=== PATIENT | male | born 1960 | race Caucasian/White ===

== ENCOUNTER 2018-05-25 14:31 | Inpatient (IN) | payer MEDICARE, MEDICAID ==
[~2018-05-25] VITALS: Ht 170.2 cm; Wt 97.4 kg
[2018-05-25 14:53] LABS: GLUCOSE,POINT OF CARE 89 MG/DL (70-110)
[2018-05-25] MEDS ORDERED: DIGO-44 PO (15:05)
[2018-05-25] MEDS ORDERED: QUET300T2 PO (15:05)
[2018-05-25] MEDS ORDERED: FAMO20 PO (15:05)
[2018-05-25] MEDS ORDERED: HYDR2 PO (15:05)
[2018-05-25] MEDS ORDERED: PRED10 PO (15:05)
[2018-05-25] MEDS ORDERED: NACL1 PO (15:05)
[2018-05-25] MEDS ORDERED: OXCA300T29 PO (15:05)
[2018-05-25] MEDS ORDERED: TRAZ-220 PO (15:05)
[2018-05-25] MEDS ORDERED: LORA0.5T2 PO (15:05)
[2018-05-25] MEDS ORDERED: CHLO100T24 PO (15:05)
[2018-05-25] MEDS ORDERED: ROFL500T PO (15:05)
[2018-05-25] MEDS ORDERED: ASCO500 PO (15:05)
[2018-05-25] MEDS ORDERED: MONT10TA21 PO (15:05)
[2018-05-25] MEDS ORDERED: BUME1TAB17 PO (15:05)
[2018-05-25] MEDS ORDERED: FERSL PO (15:05)
[2018-05-25] MEDS ORDERED: QUET25TA PO (15:05)
[2018-05-25] MEDS ORDERED: ATEN50TA PO (15:05)
[2018-05-25] MEDS ORDERED: NICO-802 TD (15:05)
[2018-05-25] MEDS ORDERED: CLON-570 PO (15:05)
[2018-05-25] MEDS ORDERED: DILT30 PO (15:05)
[2018-05-25] MEDS ORDERED: FENT-76 TD (15:05)
[2018-05-25] MEDS ORDERED: LEVO50 PO (15:05)
[2018-05-25] MEDS ORDERED: KDUR20 PO (15:05)
[2018-05-25] MEDS ORDERED: ONDA4 PO (15:05)
[2018-05-25] MEDS ORDERED: MIRT15 PO (15:05)
[2018-05-25] MEDS ORDERED: BUSP15 PO (15:05)
[2018-05-25] MEDS ORDERED: PRAZ1 PO (15:05)
[2018-05-25] MEDS ORDERED: MELA5TAB3 PO (15:05)
[2018-05-25 15:10] LABS: BASOPHILS % (AUTO) 0.8 % (0.0-2.0); EOSINOPHILS % (AUTO) 1.4 % (1.0-6.0); HEMATOCRIT 41.4 % (41-53); HEMOGLOBIN 13.6 g/dL (13.5-17.5); LYMPHOCYTES # (AUTO) 0.9 K/uL (1.0-4.8); LYMPHOCYTES % (AUTO) 11.9 % (22.0-44.0); MEAN CORPUSCULAR HEMOGLOBIN 27.8 pg (26.0-34.0); MEAN CORPUSCULAR HGB CONC 32.8 G/dL (31.0-37.0); MEAN CORPUSCULAR VOLUME 85 fL (80-100); MONOCYTES # (AUTO) 0.5 K/uL (0.1-1.0); MONOCYTES % (AUTO) 6.1 % (2.0-9.0); NEUTROPHILS # (AUTO) 6.2 K/uL (1.8-7.7); NEUTROPHILS % (AUTO) 79.8 % (40.0-70.0); PLATELET COUNT (AUTO) 265 K/uL (150-450); RED CELL DISTRIBUTION WIDTH 14.6 % (11.5-14.5)
[2018-05-25 15:17] LABS: ANION GAP 10 mmol/L (8-16); CALCIUM, TOTAL 8.8 mg/dL (8.8-10.5); CARBON DIOXIDE 38 mmol/L (22-29); CHLORIDE 91 mmol/L (98-107); CREATININE 0.96 mg/dL (0.60-1.30); GLOMERULAR FILTR. RATE CALC > 60 mL/min (>60); GLUCOSE,RANDOM 87 mg/dL (70-110); POTASSIUM 3.3 mmol/L (3.5-5.1); SODIUM SERUM 139 mmol/L (136-145); UREA NITROGEN, BLOOD 31 mg/dL (7-18)
[2018-05-25 15:19] LABS: AMPHET/METH SCREEN,URINE NEGATIVE (NEGATIVE); BARBITURATE SCREEN, URINE NEGATIVE (NEGATIVE); BENZODIAZEPINES SCREEN,URINE POSITIVE (NEGATIVE); CANNABINOID SCREEN,URINE NEGATIVE (NEGATIVE); COCAINE SCREEN,URINE NEGATIVE (NEGATIVE); METHADONE SCREEN, URINE NEGATIVE (NEGATIVE); OPIATE SCREEN,URINE POSITIVE (NEGATIVE)
[2018-05-25 15:22] LABS: SALICYLATE 4.6 mg/dL (2.8-20.0)
[2018-05-25 15:24] LABS: ALANINE AMINOTRANSFERASE 33 U/L (12-78); ALBUMIN 3.1 g/dL (3.4-5.0); ALKALINE PHOSPHATASE 98 U/L (46-116); ASPARTATE AMINOTRANSFERASE 18 U/L (15-37); BILIRUBIN,TOTAL 0.4 mg/dL (0.1-1.0); DIGOXIN 0.77 ng/mL (0.90-2.00)
[2018-05-25 15:26] LABS: PHENCYCLIDINE SCREEN,URINE NEGATIVE (NEGATIVE)
[2018-05-25] MEDS ORDERED: HALOPERIDOL 5 MG TABLET PO PRN (16:00)
[2018-05-25] MEDS ORDERED: LORazepam 2 MG TABLET PO PRN (16:00)
[2018-05-25] MEDS ORDERED: ZOLPIDEM TARTRATE 10 MG TABLET PO PRN (16:00)
[2018-05-25 16:24] LABS: ACETAMINOPHEN < 2 mcg/mL (10-30)
[2018-05-25 19:05] LABS: ANION GAP 8 mmol/L (8-16); CALCIUM, TOTAL 8.8 mg/dL (8.8-10.5); CARBON DIOXIDE 38 mmol/L (22-29); CHLORIDE 92 mmol/L (98-107); GLOMERULAR FILTR. RATE CALC > 60 mL/min (>60); GLUCOSE,RANDOM 90 mg/dL (70-110); POTASSIUM 3.4 mmol/L (3.5-5.1); SODIUM SERUM 138 mmol/L (136-145); UREA NITROGEN, BLOOD 32 mg/dL (7-18)
[2018-05-25 19:12] LABS: DIGOXIN 0.78 ng/mL (0.90-2.00)
[2018-05-25 19:14] LABS: IRON, SERUM 35 mcg/dL (50-175); SALICYLATE 4.5 mg/dL (2.8-20.0)
[2018-05-25] MEDS ORDERED: MAGNESIUM HYDROXIDE SUSPENSION 30 ML UDCUP PO PRN (20:45)
[2018-05-25] MEDS ORDERED: IPRATROPIUM BROMIDE 0.5 MG/2.5 ML NEB SOLUTION NEB PRN (20:45)
[2018-05-25] MEDS ORDERED: ALBUTEROL SULFATE 2.5 MG/0.5 ML NEB SOLUTION NEB PRN (20:45)
[2018-05-25] MEDS ORDERED: ACETAMINOPHEN 325 MG TABLET PO PRN (21:00)
[2018-05-25] MEDS ORDERED: ONDANSETRON HCL 4 MG/2 ML VIAL IVP PRN (21:00)
[2018-05-25 22:20] VITALS: BP 109/70
[2018-05-26 04:35] VITALS: BP 106/65
[2018-05-26] MEDS: LORazepam 1 MG TABLET PO PRN ×2 (04:41→10:48)
[2018-05-26 07:13] LABS: ALANINE AMINOTRANSFERASE 29 U/L (12-78); ALBUMIN 2.8 g/dL (3.4-5.0); ALKALINE PHOSPHATASE 95 U/L (46-116); ANION GAP 6 mmol/L (8-16); ASPARTATE AMINOTRANSFERASE 17 U/L (15-37); BILIRUBIN,TOTAL 0.3 mg/dL (0.1-1.0); CALCIUM, TOTAL 8.8 mg/dL (8.8-10.5); CHLORIDE 93 mmol/L (98-107); CREATININE 0.91 mg/dL (0.60-1.30); DIGOXIN 0.74 ng/mL (0.90-2.00); GLOMERULAR FILTR. RATE CALC > 60 mL/min (>60); GLUCOSE,RANDOM 68 mg/dL (70-110); POTASSIUM 3.1 mmol/L (3.5-5.1); SODIUM SERUM 140 mmol/L (136-145); TOTAL PROTEIN, SERUM 6.6 g/dL (6.4-8.2); UREA NITROGEN, BLOOD 30 mg/dL (7-18)
[2018-05-26 07:18] LABS: IRON, SERUM 37 mcg/dL (50-175)
[2018-05-26 07:29] LABS: CARBON DIOXIDE 41 mmol/L (22-29)
[2018-05-26 08:10] VITALS: BP 110/69
[2018-05-26] MEDS: PANTOPRAZOLE SODIUM 40 MG DR TABLET PO SCH (09:02)
[2018-05-26] MEDS: DOCUSATE SODIUM 100 MG CAPSULE PO SCH ×2 (09:02→19:43)
[2018-05-26] MEDS: MULTIVITAMINS WITH MINERALS, THERAPEUTIC TABLET PO SCH (09:02)
[2018-05-26] MEDS ORDERED: POTASSIUM CHL 10 MEQ/WATER 50 ML IV PRN (10:00)
[2018-05-26] MEDS: POTASSIUM CHLORIDE 20 MEQ ER TABLET PO PRN (10:48)
[2018-05-26 11:01] VITALS: BP 119/69
[2018-05-26 12:28] VITALS: BP 137/66
[2018-05-26] MEDS: ARIPiprazole 5 MG TABLET PO SCH (13:22)
[2018-05-26 15:03] VITALS: BP 128/68
[2018-05-26] MEDS: LORazepam 2 MG TABLET PO PRN ×3 (15:41→23:50)
[2018-05-26 19:00] VITALS: BP 120/80
[2018-05-26] MEDS ORDERED: MIRTAZAPINE 15 MG TABLET PO SCH (21:00)
[2018-05-27] VITALS (7 sets, daily range): BP systolic 113–150; BP diastolic 67–94
[2018-05-27] MEDS: LORazepam 2 MG TABLET PO PRN ×5 (03:46→21:03)
[2018-05-27] MEDS: MULTIVITAMINS WITH MINERALS, THERAPEUTIC TABLET PO SCH (07:57)
[2018-05-27] MEDS: DOCUSATE SODIUM 100 MG CAPSULE PO SCH ×2 (07:57→19:57)
[2018-05-27] MEDS: ARIPiprazole 5 MG TABLET PO SCH (07:57)
[2018-05-27] MEDS: PANTOPRAZOLE SODIUM 40 MG DR TABLET PO SCH (07:57)
[2018-05-27] MEDS: ACETAMINOPHEN 325 MG TABLET PO PRN ×2 (10:30→23:04)
[2018-05-27] MEDS: NICOTINE 14 MG/24 HOUR PATCH TD SCH (13:54)
[2018-05-27] MEDS: DILTIAZEM HCL 30 MG TABLET PO SCH ×2 (18:34→19:57)
[2018-05-27] MEDS: MIRTAZAPINE 30 MG TABLET PO SCH (21:00)
[2018-05-27] MEDS ORDERED: MIRTAZAPINE 15 MG TABLET PO SCH (21:00)
[2018-05-28] MEDS: LORazepam 2 MG TABLET PO PRN ×2 (00:52→05:11)
[2018-05-28 04:15] VITALS: BP 143/90
[2018-05-28 06:44] LABS: GLUCOMETER DEV NAME(LOC) 4E.; GLUCOSE,POINT OF CARE 78 MG/DL (70-110)
[2018-05-28] MEDS: ARIPiprazole 10 MG TABLET PO SCH (06:54)
[2018-05-28 07:08] VITALS: BP 148/85
[2018-05-28] MEDS: DOCUSATE SODIUM 100 MG CAPSULE PO SCH ×2 (08:56→20:27)
[2018-05-28] MEDS: MULTIVITAMINS WITH MINERALS, THERAPEUTIC TABLET PO SCH (08:57)
[2018-05-28] MEDS: PANTOPRAZOLE SODIUM 40 MG DR TABLET PO SCH (08:57)
[2018-05-28] MEDS: DILTIAZEM HCL 30 MG TABLET PO SCH ×3 (09:46→20:28)
[2018-05-28] MEDS: LORazepam 1 MG TABLET PO PRN ×4 (09:46→21:55)
[2018-05-28] MEDS: NICOTINE 14 MG/24 HOUR PATCH TD SCH (09:46)
[2018-05-28 11:38] VITALS: BP 151/78
[2018-05-28 16:16] VITALS: BP 144/72
[2018-05-28 19:45] VITALS: BP 132/80
[2018-05-28] MEDS: MIRTAZAPINE 30 MG TABLET PO SCH (20:27)
[2018-05-28] MEDS: MUPIROCIN CALCIUM 2% 22 GM OINTMENT NASAL SCH (20:28)
[2018-05-29] VITALS (7 sets, daily range): BP systolic 127–140; BP diastolic 77–89
[2018-05-29] MEDS: ACETAMINOPHEN 325 MG TABLET PO PRN (00:33)
[2018-05-29] MEDS: LORazepam 1 MG TABLET PO PRN ×5 (06:20→21:34)
[2018-05-29] MEDS: DOCUSATE SODIUM 100 MG CAPSULE PO SCH ×2 (09:23→20:22)
[2018-05-29] MEDS: MULTIVITAMINS WITH MINERALS, THERAPEUTIC TABLET PO SCH (09:23)
[2018-05-29] MEDS: NICOTINE 14 MG/24 HOUR PATCH TD SCH (09:23)
[2018-05-29] MEDS: ARIPiprazole 10 MG TABLET PO SCH (09:23)
[2018-05-29] MEDS: PANTOPRAZOLE SODIUM 40 MG DR TABLET PO SCH (09:23)
[2018-05-29] MEDS: DILTIAZEM HCL 30 MG TABLET PO SCH ×3 (09:23→20:22)
[2018-05-29] MEDS: MUPIROCIN CALCIUM 2% 22 GM OINTMENT NASAL SCH ×2 (12:37→20:22)
[2018-05-29] MEDS ORDERED: MIRTAZAPINE 30 MG TABLET PO SCH (21:00)
[2018-05-29] MEDS: MIRTAZAPINE 15 MG TABLET PO SCH (21:00)
[2018-05-30] MEDS: LORazepam 1 MG TABLET PO PRN ×6 (03:43→23:55)
[2018-05-30 04:10] VITALS: BP 127/76
[2018-05-30] MEDS: MULTIVITAMINS WITH MINERALS, THERAPEUTIC TABLET PO SCH (07:43)
[2018-05-30] MEDS: ARIPiprazole 15 MG TABLET PO SCH (07:43)
[2018-05-30] MEDS: NICOTINE 14 MG/24 HOUR PATCH TD SCH (07:43)
[2018-05-30] MEDS: PANTOPRAZOLE SODIUM 40 MG DR TABLET PO SCH (07:43)
[2018-05-30] MEDS: MUPIROCIN CALCIUM 2% 22 GM OINTMENT NASAL SCH ×2 (07:43→19:45)
[2018-05-30] MEDS: DILTIAZEM HCL 30 MG TABLET PO SCH ×3 (07:44→19:45)
[2018-05-30] MEDS: DOCUSATE SODIUM 100 MG CAPSULE PO SCH ×2 (07:44→19:44)
[2018-05-30 08:11] VITALS: BP 116/68
[2018-05-30 11:12] VITALS: BP 100/61
[2018-05-30 16:00] VITALS: BP 134/78
[2018-05-30] MEDS: TraZODone HCL 100 MG TABLET PO SCH (19:44)
[2018-05-30] MEDS: MIRTAZAPINE 15 MG TABLET PO SCH (19:44)
[2018-05-30 19:53] VITALS: BP 114/84
[2018-05-31] VITALS (7 sets, daily range): BP systolic 112–128; BP diastolic 73–83
[2018-05-31] MEDS: LORazepam 1 MG TABLET PO PRN ×5 (05:40→21:59)
[2018-05-31] MEDS: MUPIROCIN CALCIUM 2% 22 GM OINTMENT NASAL SCH ×2 (08:28→20:15)
[2018-05-31] MEDS: MULTIVITAMINS WITH MINERALS, THERAPEUTIC TABLET PO SCH (08:28)
[2018-05-31] MEDS: ARIPiprazole 15 MG TABLET PO SCH (08:28)
[2018-05-31] MEDS: DILTIAZEM HCL 30 MG TABLET PO SCH (08:28)
[2018-05-31] MEDS: DOCUSATE SODIUM 100 MG CAPSULE PO SCH ×2 (08:28→20:15)
[2018-05-31] MEDS: PANTOPRAZOLE SODIUM 40 MG DR TABLET PO SCH (08:28)
[2018-05-31] MEDS: NICOTINE 14 MG/24 HOUR PATCH TD SCH (08:28)
[2018-05-31 12:14] LABS: BASOPHILS % (AUTO) 1.1 % (0.0-2.0); EOSINOPHILS % (AUTO) 4.7 % (1.0-6.0); HEMATOCRIT 40.4 % (41-53); HEMOGLOBIN 13.1 g/dL (13.5-17.5); LYMPHOCYTES # (AUTO) 1.3 K/uL (1.0-4.8); LYMPHOCYTES % (AUTO) 19.7 % (22.0-44.0); MEAN CORPUSCULAR HEMOGLOBIN 27.6 pg (26.0-34.0); MEAN CORPUSCULAR HGB CONC 32.5 G/dL (31.0-37.0); MEAN CORPUSCULAR VOLUME 85 fL (80-100); MONOCYTES # (AUTO) 0.8 K/uL (0.1-1.0); MONOCYTES % (AUTO) 11.5 % (2.0-9.0); NEUTROPHILS # (AUTO) 4.2 K/uL (1.8-7.7); PLATELET COUNT (AUTO) 288 K/uL (150-450); RED BLOOD CELL COUNT(AUTO) 4.75 MIL/uL (4.50-5.90); RED CELL DISTRIBUTION WIDTH 15.1 % (11.5-14.5)
[2018-05-31 12:43] LABS: ANION GAP 3 mmol/L (8-16); CALCIUM, TOTAL 8.6 mg/dL (8.8-10.5); CARBON DIOXIDE 38 mmol/L (22-29); CHLORIDE 97 mmol/L (98-107); CREATININE 0.58 mg/dL (0.60-1.30); GLOMERULAR FILTR. RATE CALC > 60 mL/min (>60); GLUCOSE,RANDOM 95 mg/dL (70-110); POTASSIUM 3.2 mmol/L (3.5-5.1); SODIUM SERUM 138 mmol/L (136-145); THYROID STIMULATING HORMONE 1.29 uIU/mL (0.36-3.74); UREA NITROGEN, BLOOD 8 mg/dL (7-18)
[2018-05-31] MEDS: POTASSIUM CHLORIDE 20 MEQ ER TABLET PO PRN (13:48)
[2018-05-31] MEDS ORDERED: MAGNESIUM SULFATE 4 GM/WATER 100 ML IV PRN (14:30)
[2018-05-31] MEDS ORDERED: MAGNESIUM SULFATE 2 GM/WATER 50 ML IV PRN (14:30)
[2018-05-31] MEDS: MAGNESIUM OXIDE 400 MG TABLET PO PRN ×2 (16:01→20:16)
[2018-05-31] MEDS: DILTIAZEM HCL 60 MG TABLET PO SCH ×2 (16:01→20:15)
[2018-05-31] MEDS: TraZODone HCL 100 MG TABLET PO SCH (20:15)
[2018-05-31] MEDS: MIRTAZAPINE 15 MG TABLET PO SCH (20:15)
[2018-06-01] MEDS: MAGNESIUM OXIDE 400 MG TABLET PO PRN (01:14)
[2018-06-01 05:00] VITALS: BP 145/91
[2018-06-01] MEDS: LORazepam 1 MG TABLET PO PRN ×4 (07:14→20:04)
[2018-06-01] MEDS: MUPIROCIN CALCIUM 2% 22 GM OINTMENT NASAL SCH ×2 (08:07→20:06)
[2018-06-01] MEDS: NICOTINE 14 MG/24 HOUR PATCH TD SCH (08:08)
[2018-06-01] MEDS: DOCUSATE SODIUM 100 MG CAPSULE PO SCH ×2 (08:09→20:06)
[2018-06-01] MEDS: ARIPiprazole 15 MG TABLET PO SCH (08:09)
[2018-06-01] MEDS: MULTIVITAMINS WITH MINERALS, THERAPEUTIC TABLET PO SCH (08:09)
[2018-06-01] MEDS: DILTIAZEM HCL 60 MG TABLET PO SCH ×3 (08:09→20:05)
[2018-06-01] MEDS: PANTOPRAZOLE SODIUM 40 MG DR TABLET PO SCH (08:09)
[2018-06-01 08:16] VITALS: BP 123/75
[2018-06-01 12:15] VITALS: BP 108/69
[2018-06-01 16:20] VITALS: BP 120/74
[2018-06-01] MEDS: MIRTAZAPINE 15 MG TABLET PO SCH (20:04)
[2018-06-01] MEDS: TraZODone HCL 100 MG TABLET PO SCH (20:06)
[2018-06-01 20:12] VITALS: BP 122/80
[2018-06-02 00:05] VITALS: BP 104/57
[2018-06-02] MEDS: LORazepam 1 MG TABLET PO PRN ×5 (00:37→21:45)
[2018-06-02 05:45] VITALS: BP 123/68
[2018-06-02 07:26] VITALS: BP 120/70
[2018-06-02] MEDS: ARIPiprazole 15 MG TABLET PO SCH (08:28)
[2018-06-02] MEDS: MUPIROCIN CALCIUM 2% 22 GM OINTMENT NASAL SCH (08:28)
[2018-06-02] MEDS: MULTIVITAMINS WITH MINERALS, THERAPEUTIC TABLET PO SCH (08:28)
[2018-06-02] MEDS: PANTOPRAZOLE SODIUM 40 MG DR TABLET PO SCH (08:28)
[2018-06-02] MEDS: NICOTINE 14 MG/24 HOUR PATCH TD SCH (08:28)
[2018-06-02] MEDS: DOCUSATE SODIUM 100 MG CAPSULE PO SCH ×2 (08:28→20:01)
[2018-06-02] MEDS: DILTIAZEM HCL 60 MG TABLET PO SCH ×3 (08:29→20:01)
[2018-06-02 11:34] VITALS: BP 117/72
[2018-06-02] MEDS: MIRTAZAPINE 15 MG TABLET PO SCH (20:01)
[2018-06-02 20:10] VITALS: BP 114/75
[2018-06-02] MEDS ORDERED: TraZODone HCL 100 MG TABLET PO SCH (21:00)
[2018-06-03 00:40] VITALS: BP 151/96
[2018-06-03] MEDS: LORazepam 1 MG TABLET PO PRN ×2 (03:16→12:23)
[2018-06-03 05:45] VITALS: BP 138/75
[2018-06-03 07:09] VITALS: BP 142/78
[2018-06-03] MEDS: NICOTINE 14 MG/24 HOUR PATCH TD SCH (08:12)
[2018-06-03] MEDS: DILTIAZEM HCL 60 MG TABLET PO SCH (08:13)
[2018-06-03] MEDS: PANTOPRAZOLE SODIUM 40 MG DR TABLET PO SCH (08:13)
[2018-06-03] MEDS: MULTIVITAMINS WITH MINERALS, THERAPEUTIC TABLET PO SCH (08:14)
[2018-06-03] MEDS: DOCUSATE SODIUM 100 MG CAPSULE PO SCH (08:14)
[2018-06-03] MEDS ORDERED: ARIPiprazole 10 MG TABLET PO SCH (09:00)
[2018-06-03 10:51] VITALS: BP 135/89
== END 2018-06-03 14:16 | DRG 917 ==
LOC: EMS 14:31 → 3EI 20:03 → UNDOADMIN 20:03 → 5N 21:04 → 4E 05-28 05:38 → 6N 05-30 14:50
PROVIDERS: ADMIT Internal Medicine; ATTEND Internal Medicine
DX: T50.902A Poisoning by unspecified drugs, medicaments and biological substances, intentional self-harm, initial encounter (principal); J96.02 Acute respiratory failure with hypercapnia; E43 Unspecified severe protein-calorie malnutrition; R64 Cachexia; R45.851 Suicidal ideations; F33.3 Major depressive disorder, recurrent, severe with psychotic symptoms; J96.11 Chronic respiratory failure with hypoxia; B95.8 Unspecified staphylococcus as the cause of diseases classified elsewhere; J44.9 Chronic obstructive pulmonary disease, unspecified; E03.9 Hypothyroidism, unspecified; R45.87 Impulsiveness; F17.210 Nicotine dependence, cigarettes, uncomplicated; F19.90 Other psychoactive substance use, unspecified, uncomplicated; F41.9 Anxiety disorder, unspecified; I10 Essential (primary) hypertension; I48.91 Unspecified atrial fibrillation; Z91.19 Patient's noncompliance with other medical treatment and regimen; Z91.5 Personal history of self-harm; Z99.81 Dependence on supplemental oxygen; Z71.6 Tobacco abuse counseling; Z68.33 Body mass index [BMI] 33.0-33.9, adult
CPT/HCPCS: 83540; 83735; 84132; 84443; 87081; 93005; 97116; 97161; 97530; G0378; G0480; G0481

== ENCOUNTER 2018-08-24 10:43 | Inpatient (IN) | payer MEDICARE, MEDICAID ==
[~2018-08-24] VITALS: Ht 172.7 cm; Wt 76.6 kg
[~2018-08-24 10:43] MED LIST: ASCO500 PO; ATEN50TA PO; BUME1TAB17 PO; BUSP15 PO; CHLO100T24 PO; CLON-570 PO; DIGO-44 PO; DILT30 PO; FAMO20 PO; FENT-76 TD; FERSL PO; HYDR2 PO; KDUR20 PO; LEVO50 PO; LORA0.5T2 PO; MELA5TAB3 PO; MIRT15 PO; MONT10TA21 PO; NACL1 PO; NICO-802 TD; ONDA4 PO; OXCA300T29 PO; PRAZ1 PO; PRED10 PO; QUET25TA PO; QUET300T2 PO; ROFL500T PO; TRAZ-220 PO
[2018-08-24] MEDS ORDERED: PANT40TA25 PO (11:07)
[2018-08-24] MEDS ORDERED: QUET25TA PO (11:07)
[2018-08-24] MEDS ORDERED: NYST100026 PO (11:07)
[2018-08-24] MEDS ORDERED: FLUT1BLS IH (11:07)
[2018-08-24] MEDS ORDERED: DILT30 PO (11:07)
[2018-08-24] MEDS ORDERED: TRAZ150 PO (11:07)
[2018-08-24] MEDS ORDERED: RIVA15T PO (11:07)
[2018-08-24] MEDS ORDERED: ARIP15TA2 PO (11:07)
[2018-08-24] MEDS ORDERED: DILT-39 PO (11:07)
[2018-08-24] MEDS ORDERED: ALBU8HFA IH (11:07)
[2018-08-24] MEDS ORDERED: LORA2TAB2 PO (11:07)
[2018-08-24] MEDS ORDERED: IPRATROPIUM BROMIDE 0.5 MG/2.5 ML NEB SOLUTION NEB ONE (11:30)
[2018-08-24] MEDS ORDERED: MethylPREDNISolone SOD SUCC 125 MG/2 ML VIAL IVP ONE (11:30)
[2018-08-24] MEDS ORDERED: ALBUTEROL SULFATE 5 MG/ML 20 ML NEB SOLN [BULK] NEB ONE ×2 (11:30→12:45)
[2018-08-24 11:59] LABS: BASOPHILS % (AUTO) 1.2 % (0.0-2.0); EOSINOPHILS % (AUTO) 2.8 % (1.0-6.0); HEMATOCRIT 45.1 % (41-53); HEMOGLOBIN 14.5 g/dL (13.5-17.5); LYMPHOCYTES # (AUTO) 1.6 K/uL (1.0-4.8); LYMPHOCYTES % (AUTO) 39.2 % (22.0-44.0); MEAN CORPUSCULAR HEMOGLOBIN 27.2 pg (26.0-34.0); MEAN CORPUSCULAR HGB CONC 32.2 G/dL (31.0-37.0); MEAN CORPUSCULAR VOLUME 85 fL (80-100); MONOCYTES # (AUTO) 0.3 K/uL (0.1-1.0); MONOCYTES % (AUTO) 7.6 % (2.0-9.0); NEUTROPHILS % (AUTO) 49.2 % (40.0-70.0); PLATELET COUNT (AUTO) 187 K/uL (150-450); RED BLOOD CELL COUNT(AUTO) 5.34 MIL/uL (4.50-5.90); RED CELL DISTRIBUTION WIDTH 14.6 % (11.5-14.5)
[2018-08-24 12:10] LABS: ANION GAP 10 mmol/L (8-16); CALCIUM, TOTAL 9.4 mg/dL (8.8-10.5); CARBON DIOXIDE 32 mmol/L (22-29); CHLORIDE 100 mmol/L (98-107); CREATININE 1.14 mg/dL (0.60-1.30); GLOMERULAR FILTR. RATE CALC > 60 mL/min (>60); GLUCOSE,RANDOM 98 mg/dL (70-110); POTASSIUM 3.4 mmol/L (3.5-5.1); SODIUM SERUM 142 mmol/L (136-145); UREA NITROGEN, BLOOD 18 mg/dL (7-18)
[2018-08-24 12:21] LABS: ALANINE AMINOTRANSFERASE 12 U/L (12-78); ALKALINE PHOSPHATASE 84 U/L (46-116); ASPARTATE AMINOTRANSFERASE 13 U/L (15-37); BILIRUBIN,TOTAL 0.2 mg/dL (0.1-1.0); TOTAL PROTEIN, SERUM 7.9 g/dL (6.4-8.2)
[2018-08-24 12:22] LABS: B-TYPE NATRIURETIC PEPTIDE 32 pg/mL (0-100)
[2018-08-24] MEDS: OXYGEN THERAPY IH SCH ×2 (12:38→19:21)
[2018-08-24] MEDS ORDERED: 0.9% SODIUM CHLORIDE 10 ML SYRINGE IVP PRN (12:45)
[2018-08-24] MEDS ORDERED: ONDANSETRON HCL 4 MG/2 ML VIAL IVP PRN ×2 (12:45→13:30)
[2018-08-24] MEDS ORDERED: CefTRIAXone 1 GM/DEXTROSE 50 ML IV ONE (12:45)
[2018-08-24] MEDS ORDERED: ACETAMINOPHEN 325 MG TABLET PO PRN (12:45)
[2018-08-24] MEDS ORDERED: POTASSIUM CHLORIDE 10% 40 MEQ/30 ML LIQUID UDCUP PO ONE (12:45)
[2018-08-24] MEDS ORDERED: AZITHROMYCIN 500 MG/NS 250 ML IV ONE (12:45)
[2018-08-24 12:57] LABS: INFLUENZA TYPE A NEGATIVE FOR TYPE A (NEGATIVE); INFLUENZA TYPE B NEGATIVE FOR TYPE B (NEGATIVE)
[2018-08-24] MEDS ORDERED: MAGNESIUM HYDROXIDE SUSPENSION 30 ML UDCUP PO PRN (13:30)
[2018-08-24] MEDS ORDERED: HYDROCODONE/ACETAMINOPHEN 5-325 MG TABLET PO PRN ×2 (13:30)
[2018-08-24] MEDS ORDERED: ALBUTEROL SULFATE 2.5 MG/0.5 ML NEB SOLUTION NEB PRN (13:30)
[2018-08-24] MEDS ORDERED: ZOLPIDEM TARTRATE 5 MG TABLET PO PRN (13:30)
[2018-08-24] MEDS ORDERED: IPRATROPIUM BROMIDE 0.5 MG/2.5 ML NEB SOLUTION NEB PRN (13:30)
[2018-08-24] MEDS ORDERED: OxyCODONE HCL/ACETAMINOPHEN 5-325 MG TABLET PO PRN (13:30)
[2018-08-24] MEDS ORDERED: ALBUTEROL SULFATE 2.5 MG/0.5 ML NEB SOLUTION NEB SCH (15:00)
[2018-08-24] MEDS ORDERED: IPRATROPIUM BROMIDE 0.5 MG/2.5 ML NEB SOLUTION NEB SCH (15:00)
[2018-08-24] MEDS: MethylPREDNISolone SOD SUCC 125 MG/2 ML VIAL IVP SCH ×2 (15:47→21:42)
[2018-08-24] MEDS: HEPARIN SODIUM,PORCINE 5,000 UNITS/ML VIAL SQ SCH (15:47)
[2018-08-24] MEDS: QUEtiapine FUMARATE 25 MG TABLET PO SCH ×2 (15:48→22:39)
[2018-08-24] MEDS: LORazepam 2 MG TABLET PO SCH ×2 (15:48→21:46)
[2018-08-24] MEDS: NYSTATIN 500,000 UNITS/5 ML SUSPENSION UDCUP PO SCH ×2 (15:48→22:39)
[2018-08-24] MEDS: IPRATROPIUM BROMIDE 0.5 MG/2.5 ML NEB SOLUTION NEB SCH ×2 (16:00→21:02)
[2018-08-24] MEDS: ALBUTEROL SULFATE 2.5 MG/0.5 ML NEB SOLUTION NEB SCH ×2 (16:00→21:02)
[2018-08-24 17:42] LABS: THYROID STIMULATING HORMONE 0.01 uIU/mL (0.36-3.74)
[2018-08-24] MEDS: RIVAROXABAN 15 MG TABLET PO SCH (19:54)
[2018-08-24 21:20] VITALS: BP 118/70
[2018-08-24] MEDS: DILTIAZEM HCL CD 120 MG ER CAPSULE PO SCH (21:43)
[2018-08-24] MEDS: DOCUSATE SODIUM 100 MG CAPSULE PO SCH (21:43)
[2018-08-24] MEDS: TraZODone HCL 150 MG TABLET PO SCH (21:43)
[2018-08-24] MEDS: FAMOTIDINE 20 MG TABLET PO SCH (21:44)
[2018-08-24] MEDS ORDERED: PRED10TA3 PO (23:13)
[2018-08-24 23:35] VITALS: BP 111/66
[2018-08-25] MEDS: HEPARIN SODIUM,PORCINE 5,000 UNITS/ML VIAL SQ SCH
[2018-08-25 04:43] VITALS: BP 103/80
[2018-08-25 06:04] LABS: EOSINOPHILS % (AUTO) 0 % (1.0-6.0); HEMATOCRIT 40.4 % (41-53); HEMOGLOBIN 12.8 g/dL (13.5-17.5); LYMPHOCYTES # (AUTO) 0.7 K/uL (1.0-4.8); LYMPHOCYTES % (AUTO) 29.1 % (22.0-44.0); MEAN CORPUSCULAR HEMOGLOBIN 26.5 pg (26.0-34.0); MEAN CORPUSCULAR HGB CONC 31.8 G/dL (31.0-37.0); MEAN CORPUSCULAR VOLUME 83 fL (80-100); MONOCYTES # (AUTO) 0.1 K/uL (0.1-1.0); MONOCYTES % (AUTO) 2.8 % (2.0-9.0); NEUTROPHILS # (AUTO) 1.6 K/uL (1.8-7.7); NEUTROPHILS % (AUTO) 66.1 % (40.0-70.0); PLATELET COUNT (AUTO) 179 K/uL (150-450); RED BLOOD CELL COUNT(AUTO) 4.84 MIL/uL (4.50-5.90); RED CELL DISTRIBUTION WIDTH 14.6 % (11.5-14.5)
[2018-08-25 06:12] LABS: HEMOGLOBIN A1C 5.2 % (4.5-6.2)
[2018-08-25 06:20] LABS: CHOL/HDL RATIO 3.4 (4.2-7.3); MAGNESIUM 1.8 mg/dL (1.80-2.40); POTASSIUM 4.6 mmol/L (3.5-5.1)
[2018-08-25 07:47] VITALS: BP 126/81
[2018-08-25] MEDS: ALBUTEROL SULFATE 2.5 MG/0.5 ML NEB SOLUTION NEB SCH ×4 (09:08→20:05)
[2018-08-25] MEDS: IPRATROPIUM BROMIDE 0.5 MG/2.5 ML NEB SOLUTION NEB SCH ×4 (09:08→20:06)
[2018-08-25] MEDS: FLUTICASONE/VILANTEROL 200-25 MCG/INH INHALER [14] IH SCH (09:55)
[2018-08-25] MEDS: ARIPiprazole 10 MG TABLET PO SCH (09:56)
[2018-08-25] MEDS: DOCUSATE SODIUM 100 MG CAPSULE PO SCH ×2 (09:56→20:22)
[2018-08-25] MEDS: QUEtiapine FUMARATE 25 MG TABLET PO SCH ×3 (09:56→20:23)
[2018-08-25] MEDS: NYSTATIN 500,000 UNITS/5 ML SUSPENSION UDCUP PO SCH ×4 (09:56→20:22)
[2018-08-25] MEDS: LORazepam 2 MG TABLET PO SCH ×3 (09:57→20:23)
[2018-08-25] MEDS: DILTIAZEM HCL CD 120 MG ER CAPSULE PO SCH ×2 (09:57→20:23)
[2018-08-25] MEDS: FAMOTIDINE 20 MG TABLET PO SCH ×2 (09:57→20:23)
[2018-08-25] MEDS: MethylPREDNISolone SOD SUCC 40 MG/ML VIAL IVP SCH ×4 (10:01→20:22)
[2018-08-25 11:43] VITALS: BP 114/75
[2018-08-25] MEDS: ACETAMINOPHEN 325 MG TABLET PO PRN ×2 (12:28→17:35)
[2018-08-25] MEDS: CefTRIAXone 1 GM/DEXTROSE 50 ML IV SCH (12:28)
[2018-08-25] MEDS ORDERED: SODIUM CHLORIDE 0.9% 100 ML ONE (12:38)
[2018-08-25 13:58] LABS: FREE T4 (FREE THYROXINE) 0.88 ng/dL (0.76-1.46)
[2018-08-25 15:34] VITALS: BP 111/68
[2018-08-25] MEDS: RIVAROXABAN 15 MG TABLET PO SCH (17:35)
[2018-08-25 20:13] VITALS: BP 108/69
[2018-08-25] MEDS: TraZODone HCL 150 MG TABLET PO SCH (20:23)
[2018-08-26 00:28] VITALS: BP 104/68
[2018-08-26 04:19] VITALS: BP 130/72
[2018-08-26 06:28] LABS: BASOPHILS % (AUTO) 0.1 % (0.0-2.0); EOSINOPHILS % (AUTO) 0 % (1.0-6.0); HEMATOCRIT 40.3 % (41-53); LYMPHOCYTES # (AUTO) 0.8 K/uL (1.0-4.8); LYMPHOCYTES % (AUTO) 11.6 % (22.0-44.0); MEAN CORPUSCULAR HEMOGLOBIN 27.2 pg (26.0-34.0); MEAN CORPUSCULAR HGB CONC 32.3 G/dL (31.0-37.0); MEAN CORPUSCULAR VOLUME 84 fL (80-100); MONOCYTES # (AUTO) 0.3 K/uL (0.1-1.0); MONOCYTES % (AUTO) 4.1 % (2.0-9.0); NEUTROPHILS # (AUTO) 5.5 K/uL (1.8-7.7); NEUTROPHILS % (AUTO) 84.2 % (40.0-70.0); PLATELET COUNT (AUTO) 184 K/uL (150-450); RED BLOOD CELL COUNT(AUTO) 4.78 MIL/uL (4.50-5.90); RED CELL DISTRIBUTION WIDTH 14.7 % (11.5-14.5)
[2018-08-26] MEDS: DOCUSATE SODIUM 100 MG CAPSULE PO SCH ×2 (08:26→20:52)
[2018-08-26] MEDS: FAMOTIDINE 20 MG TABLET PO SCH ×2 (08:26→20:53)
[2018-08-26] MEDS: MethylPREDNISolone SOD SUCC 40 MG/ML VIAL IVP SCH ×4 (08:26→20:52)
[2018-08-26] MEDS: LORazepam 2 MG TABLET PO SCH ×3 (08:26→20:53)
[2018-08-26] MEDS: FLUTICASONE/VILANTEROL 200-25 MCG/INH INHALER [14] IH SCH (08:27)
[2018-08-26] MEDS: NYSTATIN 500,000 UNITS/5 ML SUSPENSION UDCUP PO SCH ×4 (08:28→20:52)
[2018-08-26] MEDS: ARIPiprazole 10 MG TABLET PO SCH (08:28)
[2018-08-26] MEDS: DILTIAZEM HCL CD 120 MG ER CAPSULE PO SCH ×2 (08:29→20:53)
[2018-08-26] MEDS: QUEtiapine FUMARATE 25 MG TABLET PO SCH ×3 (08:29→20:53)
[2018-08-26] MEDS: IPRATROPIUM BROMIDE 0.5 MG/2.5 ML NEB SOLUTION NEB SCH ×4 (09:11→20:16)
[2018-08-26] MEDS: ALBUTEROL SULFATE 2.5 MG/0.5 ML NEB SOLUTION NEB SCH ×4 (09:11→20:16)
[2018-08-26 09:39] VITALS: BP 126/83
[2018-08-26 12:29] VITALS: BP 117/97
[2018-08-26] MEDS: CefTRIAXone 1 GM/DEXTROSE 50 ML IV SCH (14:13)
[2018-08-26 16:20] VITALS: BP 127/79
[2018-08-26] MEDS: RIVAROXABAN 15 MG TABLET PO SCH (17:40)
[2018-08-26 20:47] VITALS: BP 116/74
[2018-08-26] MEDS: TraZODone HCL 150 MG TABLET PO SCH (20:53)
[2018-08-27 05:24] VITALS: BP 138/84
[2018-08-27 06:41] LABS: BASOPHILS % (AUTO) 0.1 % (0.0-2.0); EOSINOPHILS % (AUTO) 0 % (1.0-6.0); HEMATOCRIT 40.7 % (41-53); HEMOGLOBIN 13.4 g/dL (13.5-17.5); LYMPHOCYTES # (AUTO) 0.7 K/uL (1.0-4.8); LYMPHOCYTES % (AUTO) 13.8 % (22.0-44.0); MEAN CORPUSCULAR HEMOGLOBIN 27.4 pg (26.0-34.0); MEAN CORPUSCULAR VOLUME 83 fL (80-100); MONOCYTES # (AUTO) 0.2 K/uL (0.1-1.0); MONOCYTES % (AUTO) 2.9 % (2.0-9.0); NEUTROPHILS # (AUTO) 4.4 K/uL (1.8-7.7); NEUTROPHILS % (AUTO) 83.2 % (40.0-70.0); PLATELET COUNT (AUTO) 190 K/uL (150-450)
[2018-08-27 07:58] VITALS: BP 143/88
[2018-08-27] MEDS: FLUTICASONE/VILANTEROL 200-25 MCG/INH INHALER [14] IH SCH (08:12)
[2018-08-27] MEDS: ARIPiprazole 10 MG TABLET PO SCH (08:12)
[2018-08-27] MEDS: MethylPREDNISolone SOD SUCC 40 MG/ML VIAL IVP SCH ×3 (08:12→15:53)
[2018-08-27] MEDS: DOCUSATE SODIUM 100 MG CAPSULE PO SCH (08:13)
[2018-08-27] MEDS: NYSTATIN 500,000 UNITS/5 ML SUSPENSION UDCUP PO SCH ×3 (08:13→15:53)
[2018-08-27] MEDS: DILTIAZEM HCL CD 120 MG ER CAPSULE PO SCH (08:13)
[2018-08-27] MEDS: LORazepam 2 MG TABLET PO SCH ×2 (08:13→15:53)
[2018-08-27] MEDS: FAMOTIDINE 20 MG TABLET PO SCH (08:13)
[2018-08-27] MEDS: QUEtiapine FUMARATE 25 MG TABLET PO SCH ×2 (08:14→15:53)
[2018-08-27] MEDS: ALBUTEROL SULFATE 2.5 MG/0.5 ML NEB SOLUTION NEB SCH ×2 (09:09→13:49)
[2018-08-27] MEDS: IPRATROPIUM BROMIDE 0.5 MG/2.5 ML NEB SOLUTION NEB SCH ×2 (09:09→13:49)
[2018-08-27] MEDS ORDERED: CEFTR1IV IV (12:51)
[2018-08-27] MEDS ORDERED: CEFX2I IV (12:52)
[2018-08-27] MEDS: CefTRIAXone 1 GM/DEXTROSE 50 ML IV SCH (14:06)
[2018-08-27 15:45] VITALS: BP 124/74
== END 2018-08-27 17:53 | DRG 189 ==
LOC: EMS 10:43 → 5S 18:33 → UNDOADMIN 18:43
PROVIDERS: ADMIT Internal Medicine; ATTEND Internal Medicine
DX: J96.01 Acute respiratory failure with hypoxia (principal); J44.1 Chronic obstructive pulmonary disease with (acute) exacerbation; I48.91 Unspecified atrial fibrillation; I10 Essential (primary) hypertension; E03.9 Hypothyroidism, unspecified; F41.9 Anxiety disorder, unspecified; F32.9 Major depressive disorder, single episode, unspecified; Z79.01 Long term (current) use of anticoagulants; Z93.1 Gastrostomy status
CPT/HCPCS: 83036; 83735; 84132; 84439; 84443; 87040; 87081; 87804; 93005; 94640; 94644; 94645; 96365; 96375; G0378; G0480; J0456; J0696; J1644; J2920; J2930; J7050